=== PATIENT | male | born 1970 ===

== ENCOUNTER 2017-07-28 02:48 | Emergency (ER) | payer SELFPAY ==
[2017-07-28 03:00] VITALS: BP 136/88; PULSE 93; RESP 16; TEMP 97.8; O2SAT 99
[2017-07-28] MEDS ORDERED: Bacitracin 500 Units/gm Oint Foilpak UD TOP ONE (03:12)
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
[2017-07-28] MEDS ORDERED: Bacitracin 500 Units/gm Oint Foilpak UD ONE (03:16)
== END 2017-07-28 03:47 | disposition home or self-care (01) ==
LOC: C.ER 02:48
DX: M25.562 Pain in left knee (principal)